=== PATIENT | female | born 1995 | race Caucasian/White ===

== ENCOUNTER 2020-06-06 07:49 | Outpatient (CLI) | payer OTHER, SELFPAY ==
[2020-06-07 14:58] LABS: SARS-CoV-2 RNA PCR Negative
== END 2020-06-06 07:50 | disposition home or self-care (01) ==
PROVIDERS: Visit Provider Pathology Anatomic Pathology & Clinical Pathology
DX: Z20.828 Contact with and (suspected) exposure to other viral communicable diseases (principal)
CPT/HCPCS: 87635; C9803; U0003

== ENCOUNTER 2020-11-12 11:33 | Outpatient (CLI) | payer OTHER, SELFPAY ==
[2020-11-14 18:34] LABS: SARS-CoV-2 RNA PCR Positive
== END 2020-11-12 11:34 | disposition home or self-care (01) ==
PROVIDERS: PCP Pathology Anatomic Pathology & Clinical Pathology; Visit Provider Pathology Anatomic Pathology & Clinical Pathology
DX: U07.1 COVID-19 (principal); R05 Cough; R09.89 Other specified symptoms and signs involving the circulatory and respiratory systems
CPT/HCPCS: 87635; C9803; U0003